=== PATIENT | female | born 1950 | race Two or more races ===

== ENCOUNTER 2018-02-22 11:01 | Day surgery (SDC) | payer OTHER | END 2018-02-22 15:00 | disposition home or self-care (01) | LOC: GIL 11:01 | DX: K21.0 Gastro-esophageal reflux disease with esophagitis (principal); K29.60 Other gastritis without bleeding; K64.8 Other hemorrhoids; D12.5 Benign neoplasm of sigmoid colon; I10 Essential (primary) hypertension; E78.5 Hyperlipidemia, unspecified; E03.9 Hypothyroidism, unspecified | CPT/HCPCS: 43239; 88305; 88312 ==